=== PATIENT | male | born 1995 | race Caucasian/White ===

== ENCOUNTER 2022-03-19 12:52 | Emergency (ER) | payer SELFPAY ==
[~2022-03-19] VITALS: Ht 172.7 cm; Wt 68.0 kg
--- NOTE | 2022-03-19 12:54 | NUR ---
BIBA TO BED 8.
--- NOTE | 2022-03-19 13:02 | NUR ---
MD STAHL AT BEDSIDE FOR EVALUATION
[2022-03-19] MEDS ORDERED: NACL 0.9% 1,000 ML IV ONE (13:05)
[2022-03-19 13:07] VITALS: BP 110/52
--- NOTE | 2022-03-19 13:30 | NUR ---
27YO MALE PT BIBA HOME C/O [facility] XTODAY. PT REPORTS METH USE SINCE 5PM YESTERDAY , LAST DOSE BEING 12PM TODAY. NOTES OCCASIONAL USE ABOUT EVERY 6MONTHS. RECALLS SITTING OUTSIDE W/ FAMILY AND HAVING SUDDEN ONSET OF DIZZINESS. UNKNOWN HEAD INJURY. GIVEN 1L NS BY [facility] ON ROUTE. DENIES CHEST PAIN, N/V/D, DIZZINESS, SOB, FEVER OR CHILLS. 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 BED AT LOWEST POSITION , BEDRAILS UPX2. BENINESE SPEAKING. HX:DENIES NKA
[2022-03-19 13:34] LABS: BASOPHILS % (AUTO) 0.3 % (0.0-2.0); EOSINOPHILS % (AUTO) 0.1 % (0.0-4.0); HEMOGLOBIN 12.9 g/dL (12.0-18.0); LYMPHOCYTES # (AUTO) 1.5 K/uL (2.0-11.5); LYMPHOCYTES % (AUTO) 12.9 % (20.5-51.1); MEAN CORPUSCULAR HEMOGLOBIN 32 pg (27-31); MEAN CORPUSCULAR HGB CONC 34 g/dL (33-37); MEAN CORPUSCULAR VOLUME 92.9 fL (80-94); MONOCYTES # (AUTO) 0.9 K/uL (0.8-1.0); MONOCYTES % (AUTO) 7.9 % (1.7-9.3); NEUTROPHILS # (AUTO) 9.4 K/uL (1.8-7.7); NEUTROPHILS % (AUTO) 78.8 % (42.2-75.2); PLATELET COUNT (AUTO) 208 K/uL (140-450); RED BLOOD CELL COUNT(AUTO) 4.09 MIL/uL (4.20-6.10); WHITE BLOOD COUNT (AUTO) 11.9 K/uL (4.8-10.8)
[2022-03-19 13:58] LABS: ANION GAP 18.3 (8-16); CARBON DIOXIDE 22.8 mmol/L (21-32); POTASSIUM 4.1 mmol/L (3.5-5.1)
--- NOTE | 2022-03-19 15:35 | NUR ---
IV removed, catheter intact and site benign. Applied folded 4x4 gauze and tape to stop bleeding.
[2022-03-19 15:36] VITALS: BP 126/80
--- NOTE | 2022-03-19 15:36 | NUR ---
Patient discharged with v/s stable. Written and verbal after care instructions FOR [facility] given and explained. Patient verbalized understanding. Ambulatory with steady gait. All questions addressed prior to discharge. Advised to follow up with PMD.
--- NOTE | 2022-03-19 15:52 | NUR ---
The patient's care was reviewed and supervised by Isatu Rogers, RN, RN.
[2022-03-19] MEDS ORDERED: SODIUM CHLORIDE FLUSH 10 ML SYR IVF SCH (21:00)
== END 2022-03-19 15:36 | disposition home or self-care (01) ==
LOC: MED 12:52
DX: R55 Syncope and collapse (principal)
CPT/HCPCS: 36415; 80048; 84484; 85025; 93005; 96360; 99284